=== PATIENT | female | born 1950 | race Caucasian/White ===

== ENCOUNTER → 2016-10-12 | Outpatient (CLI) | payer MEDICARE ==
[~2016-10-12] MED LIST: ACTOS; ALPRAZOLAM PO; ALPRAZOLAM1 MG PO; ANTI-DIARRHEAL2 M1 PO; APRESOLINE PO; ASPIRIN PO; AVANDIA PO; BACTRIM DS TABL1 TA1 PO; BETAPACE PO; BUMETANIDE2 M1 PO; BUMEX PO; BUMEX2 MG PO; CARDIZEM PO; CARVEDILOL6.25 MG PO; CORDARONE200 M1 PO; COREG PO; COREG6.25 MG PO; DESENEX TP; FLUOXETINE HCL20 M1 PO; GABAPENTIN400 M2 PO; GABAPENTIN400 MG PO; GLUCOPHAGE500 M1 PO; KCL PO; KEFLEX500 M1 PO; KLOR-CON PO; LANOXIN PO; LASIX PO; LEVAQUIN750 MG PO; LISINOPRIL PO; MAGNESIUM400 MG PO; METFORMIN HCL500 M1 PO; NEURONTIN PO; NITROFURANTOIN100 M3 PO; OXYCONTIN20 MG PO; PAXIL PO; PERCOCET 7.5/321 TAB PO; PERCOCET PO; PERCOCET7.5 PO; PHENERGAN25 M1 PO; PLAVIX PO; POTASSIUM CHLO10 MEQ PO; PRILOSEC20 MG PO; PROCRIT SUBQ; PROTONIX PO; PROZAC10 M1 PO; SYNTHROID PO; SYNTHROID125 PO; TESSALON PERLE100 M1 PO; VESICARE PO; VESICARE5 MG PO; VIBRAMYCIN100 M1 PO; VICODIN PO; XANAX1 MG PO; XANAX2 MG PO; ZAROXYLYN PO; ZYLOPRIM PO; ZYLOPRIM100 MG PO
--- NOTE | ~2016-10-12 | XA166 ---
[facility] A Service of [facility] & [facility] RADIOLOGY TEXT RESULTS PATIENT: PATI CHAKRABORTY LOCATION: CIVR : 48 UNIT #: [id number] AGE: [address]: Dameon Capps MD SEX: F ORDER DR: [id number] [facility] [address] [place], [place] [address] [id number] O MR#: [id number] Acc #: [id number] NAME: PATI CHAKRABORTY : 1950 SEX: F STUDY DATE/TIME: 10/12/2016 13:09 UNIT: [facility] ROOM: STUDY DESCRIPTION: XA PICC Line Placement WO Port Attending Physician: Dameon Capps M.D. Ordering Physician: Dameon Capps M.D. Primary Care Physician: Dameon Capps M.D. MEDICAL IMAGING REPORT This report is preliminary unless electronic signature is present EXAM PICC line placement HISTORY Need for IV access. 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 Informed consent was obtained, and prior to initiating the procedure a formal timeout procedure was performed. PROCEDURE Using full standard sterile barrier technique, including caps, gowns, gloves, masks, as well as sterile skin preparation and standard sterile draping, the right arm was prepped and draped in the usual fashion, and real-time sterile ultrasound guidance was used to localize an arm vein and to confirm vessel patency. A hard copy ultrasound image was recorded. After local anesthesia with 1% Xylocaine, the vein was punctured using real-time sterile ultrasound guidance, and an 0.018 guidewire was advanced into the superior vena cava, using fluoroscopic guidance. A 5-Lithuanian 40-cm double-lumen PICC was then measured and deployed with the tip positioned in the superior vena cava. The position of the line was documented with a radiographic image. The line was secured in place with an adhesive dressing and an antibiotic patch was applied. Total fluoro time was 1.7 minutes. A single fluoroscopic spot image was obtained. Reference AK 7 mGy. IMPRESSION 1. Successful placement of a 5-Lithuanian 40-cm double-lumen Power PICC via the right arm under ultrasound and fluoroscopic guidance. The tip of [facility] A Service of [facility] & [facility] RADIOLOGY TEXT RESULTS PATIENT: PATI CHAKRABORTY LOCATION: [facility] : 48 UNIT #: [id number] AGE: [address]: Dameon Capps MD SEX: F ORDER DR: the PICC is in good position in the superior vena cava. 2. A single fluoroscopic spot image was obtained. Dictated by... Kevin Rossi M.D. THIS IS AN ELECTRONICALLY VERIFIED REPORT Kevin Rossi M.D. at 10/13/2016 9:50 AM WU/christos TD: 10/12/2016 21:51 JOB #: [id number] MEDICAL IMAGING REPORT Page 1 of 1 COPY
== END | disposition home or self-care (01) ==
LOC: CIVR 12:20
PROC: 02HV33Z Insertion of Infusion Device into Superior Vena Cava, Percutaneous Approach (ICD-10-PCS; principal; 2016-10-12)
DX: Z45.2 Encounter for adjustment and management of vascular access device (principal); N39.0 Urinary tract infection, site not specified
CPT/HCPCS: 76937; 77001; C1751; J1642

== ENCOUNTER 2016-10-14 07:26 | Emergency (ER) | payer MEDICARE ==
--- NOTE | ~2016-10-14 | US140 ---
[facility] A Service of [facility] RADIOLOGY TEXT RESULTS PATIENT: PATI CHAKRABORTY LOCATION: [facility] : 48 UNIT #: [id number] AGE: [address]: Marcelle Lopez SEX: F ORDER DR: [id number] [facility] [address] [place], [place] [address] [id number] E MR#: [id number] Acc #: [id number] NAME: PATI CHAKRABORTY : 1950 SEX: F STUDY DATE/TIME: 10/14/2016 11:12 UNIT: [facility] ROOM: STUDY DESCRIPTION: US UE Veins Unilat or Ltd Stdy Attending Physician: Marcelle Lopez P.A.-C. Ordering Physician: Marcelle Lopez P.A.-C. Primary Care Physician: Dameon Capps M.D. MEDICAL IMAGING REPORT This report is preliminary unless electronic signature is present EXAM Right upper extremity duplex venous ultrasound INDICATION Right arm pain since PICC line placement. The PICC line has since been removed. TECHNIQUE Arrieta-scale, color Doppler and spectral Doppler waveform imaging of the deep venous structure of the right upper extremity was performed. COMPARISON No comparison studies are available. FINDINGS There is a short focal area of nonocclusive thrombus located within the brachial vein. The vein is partially compressible. There is no other DVT seen elsewhere. IMPRESSION There is a short of focal segment of nonocclusive thrombus within the right brachial vein. No other DVT seen elsewhere. Findings were discussed with Dr. Lopez in the ER at the time of dictation. Dictated by... Kevin Rossi M.D. THIS IS AN ELECTRONICALLY VERIFIED REPORT Kevin Rossi M.D. at 10/15/2016 12:35 PM [place] TD: 10/14/2016 12:33 JOB #: [id number] [facility] A Service of [facility] RADIOLOGY TEXT RESULTS PATIENT: PATI CHAKRABORTY LOCATION: [facility] #: [id number] : 48 UNIT #: [id number] AGE: [address]: Marcelle Lopez SEX: F ORDER DR: MEDICAL IMAGING REPORT Page 1 of 1 COPY
--- NOTE | ~2016-10-14 | CR72 ---
[facility] A Service of [facility] & [facility] RADIOLOGY TEXT RESULTS PATIENT: PATI CHAKRABORTY LOCATION: [facility] : 48 UNIT #: [id number] AGE: [address]: Marcelle Lopez SEX: F ORDER DR: [id number] [facility] [address] [place], [place] [address] [id number] E MR#: [id number] Acc #: [id number] NAME: PATI CHAKRABORTY : 1950 SEX: F STUDY DATE/TIME: 10/14/2016 13:03 UNIT: [facility] ROOM: STUDY DESCRIPTION: CR Chest Single View Portable Attending Physician: Marcelle Lopez P.A.-C. Ordering Physician: Marcelle Lopez P.A.-C. Primary Care Physician: Dameon Capps M.D. MEDICAL IMAGING REPORT This report is preliminary unless electronic signature is present EXAM Portable chest, 10/14 HISTORY PICC placement. Wheezing today. FINDINGS AP portable chest is compared with 08/25/2015. Heart remains enlarged. Lung volumes remain quite low. There is some mild vascular congestion. No acute infiltrate are seen and there is no pneumothorax. Left arm PICC is in the mid SVC. Dictated by... Yung Mclean Jr., M.D. THIS IS AN ELECTRONICALLY VERIFIED REPORT Yung Mclean Jr., M.D. at 10/14/2016 8:46 PM TONYA/stanton TD: 10/14/2016 13:31 JOB #: [id number] MEDICAL IMAGING REPORT Page 1 of 1 COPY
== END 2016-10-14 14:06 | disposition home or self-care (01) ==
LOC: CED 07:26
DX: T82.594A Other mechanical complication of infusion catheter, initial encounter (principal); I82.621 Acute embolism and thrombosis of deep veins of right upper extremity; I11.0 Hypertensive heart disease with heart failure; I50.9 Heart failure, unspecified; E03.9 Hypothyroidism, unspecified; Z90.49 Acquired absence of other specified parts of digestive tract; Z88.5 Allergy status to narcotic agent; Z88.8 Allergy status to other drugs, medicaments and biological substances
CPT/HCPCS: 71010; 93971; 99284; J2997